=== PATIENT | male | born 1975 | race Caucasian/White ===

== ENCOUNTER 2016-10-05 02:17 | Emergency (ER) | payer BC ==
--- NOTE | 2016-10-10 07:37 | ER ---
ADMIT: 10/05/2016 RM/LOC: ER [facility] MR#: [id number] [facility] [address] [place], [place] [id number] ALISSA HAGER [address] [place] [id number] Emergency Room Report SEX: M AGE: 41 : 1975 DATE: 10/05/2016 TIME: 0217 hours Please refer to my T-sheet for complete H and P. HISTORY OF PRESENT ILLNESS: Briefly, the patient is a 41-year-old, who comes in with neck pain, it has been going on for 2 days, thought he slept on it wrong. It has continued to bother him, he could not sleep tonight, rates it 03/25. He is here for evaluation. PHYSICAL EXAMINATION: VITAL SIGNS: Stable. HEENT: He is in mild pain in the left side of his neck extends from the midline down the left shoulder area. No other findings were significant. EMERGENCY DEPARTMENT COURSE: I gave him Decadron 10 mg IM, two [place] Anthony 5 mg p.o., 10 mg of Flexeril p.o. He is ready for discharge. He had a ride home. ASSESSMENT: Acute cervical strain with spasm. PLAN: Flexeril, [place] Anthony, massage. Return if worse. Follow up with Dr. Kramer in 2 to 3 days for recheck. Case Perry MD/ jacil JOB #: [id number] CC: Case Perry MD, Attending Physician Noelle Kramer MD, Family Physician Noelle Kramer MD
== END 2016-10-05 02:57 | disposition home or self-care (01) ==
LOC: ER 02:17
DX: S16.1XXA Strain of muscle, fascia and tendon at neck level, initial encounter (principal); F17.210 Nicotine dependence, cigarettes, uncomplicated; Z88.0 Allergy status to penicillin; Z90.49 Acquired absence of other specified parts of digestive tract; X58.XXXA Exposure to other specified factors, initial encounter